=== PATIENT | female | born 1985 | race Two or more races ===

== ENCOUNTER 2018-11-25 22:30 | Observation (INO) | payer MEDICAID ==
[~2018-11-25 22:30] MED LIST: [UNRECOGNIZED DRUG - OTHER]
[2018-11-26] MEDS ORDERED: PREN-145 OR (12:25)
== END 2018-11-25 23:40 | disposition home or self-care (01) | DRG 566 ==
LOC: LDRP 22:30
PROVIDERS: ADMIT Specialist; ATTEND Specialist
DX: O42.92 Full-term premature rupture of membranes, unspecified as to length of time between rupture and onset of labor (principal); Z3A.38 38 weeks gestation of pregnancy
CPT/HCPCS: 59025; 81002; G0378

== ENCOUNTER 2018-11-26 10:50 | Inpatient (IN) | payer MEDICAID ==
[2018-11-26] MEDS ORDERED: LACT. RINGERS/OXYTOCIN 20UNITS 1,000 ML IV SCH (11:37)
[2018-11-26] MEDS ORDERED: LACTATED RINGER'S 1,000 ML IV SCH (11:37)
[2018-11-26] MEDS ORDERED: NALBUPHINE HCL 10 MG/1ml INJECTION IV PRN (11:45)
[2018-11-26] MEDS ORDERED: LIDOCAINE 2%HCL (LOCAL ANESTH.) INJ 20ML MDV ID ONE (11:45)
[2018-11-26] MEDS ORDERED: PHISODERM TOP SOLN 240ML BTL TOP PRN (11:45)
[2018-11-26] MEDS ORDERED: WITCH HAZEL-GLYCERIN PAD TOP PRN (11:45)
[2018-11-26] MEDS ORDERED: DERMOPLAST 60ML BOTTLE TOP PRN (11:45)
[2018-11-26 12:23] LABS: Urine Bacteria NONE SEEN /hpf (None Seen); Urine Blood 1+ /uL (Negative); Urine Specific Gravity 1.014 (1.001-1.035); Urine WBC 5 /hpf (0 - 5)
[2018-11-26] MEDS ORDERED: PREN-145 OR (12:25)
[2018-11-26 12:35] LABS: INR < 0.93 (0.9-1.15); Partial Thromboplastin Time 30.7 sec (23.64-32.05)
[2018-11-26 12:52] LABS: Albumin 2.8 g/dL (3.4-5.0); Calcium 9.1 mg/dL (8.5-10.1); Potassium 3.8 mmol/L (3.5-5.1)
[2018-11-26 12:55] LABS: Bilirubin, Total 0.3 mg/dL (0.2-1.0); Total Protein 6.7 g/dL (6.4-8.2)
[2018-11-26 13:46] LABS: Basophils # (auto) 0 uL; Basophils % (auto) 0.5 % (0.0-2.0); Eosinophils # (auto) 0 uL; Eosinophils % (auto) 0.4 % (0.0-7.0); Hematocrit 39.2 % (36.0-46.0); Hemoglobin 13.3 g/dL (12.2-16.2); Lymphocytes # (auto) 2.1 uL; Lymphocytes % (auto) 23.4 % (10.0-50.0); Mean Corpuscular Hgb Conc. 33.9 g/dL (32.0-36.0); Mean Corpuscular Volume 97.4 fL (80.0-100.0); Monocytes # (auto) 0.6 uL; Monocytes % (auto) 6.4 % (0.0-12.0); Neutrophils # (auto) 6.3 uL; Neutrophils % (auto) 69.3 % (37.0-80.0); Nucleated Red Blood Cells % 0.1 %; Platelet Count (auto) 191 10^3/uL (140-450); Red Blood Cells 4.02 10^6/uL (4.0-5.20); Red Cell Distribution Width 13.4 % (11.8-14.3); White Blood Cell 9.1 10^3/uL (4.4-10.8)
[2018-11-26] MEDS ORDERED: IBUPROFEN 600 MG TAB PO PRN (16:00)
--- NOTE | 2018-11-26 18:15 | NUR ---
Ambulation: Patient OOB with standby assistance by RN. Patient ambulated to bathroom with steady gait. Patient able to void 600ML without difficulty. [facility]icare teaching provided with returned demonstration by patient. Clean gown provided and bed linen changed. Patient ambulated back to bed with steady gait and no distress noted.
[2018-11-26 18:55] VITALS: BP 119/76
[2018-11-26 22:54] VITALS: BP 108/62
[2018-11-27 03:01] VITALS: BP 113/60
--- NOTE | 2018-11-27 03:35 | NUR ---
IV removal IV DC'd with clean sterile technique, catheter fully intact. Pressure dressing applied to site. Patient tolerated well. Will continue to monitor.
[2018-11-27 07:30] VITALS: BP 115/76
[2018-11-27 11:15] VITALS: BP 120/60
--- NOTE | 2018-11-27 13:55 | NUR ---
Discharge: Discharge instructions given as ordered. Pt encouraged to follow up with FLIGHT/TRANSPORT NURSE as instructed. All questions and concerns addressed. Patient verbalized understanding. Medication reconciliation completed and copy given to patient.
[2018-11-27 15:20] VITALS: BP 125/73
--- NOTE | 2018-11-27 17:54 | NUR ---
Went over Post depression scal ewith patient and score of 10. Discussed importance on repeating questionnaire at first OB appointment. Patient verbalizes understanding.
== END 2018-11-27 19:00 | disposition home or self-care (01) | DRG 560 ==
LOC: LDRP 10:50 → OBSVTOIN 11:30 → LDRP 20:28
PROVIDERS: ADMIT Obstetrics & Gynecology; ATTEND Obstetrics & Gynecology
PROC: 10E0XZZ Delivery of Products of Conception, External Approach (ICD-10-PCS; principal; 2018-11-26)
PROC: 0KQM0ZZ Repair Perineum Muscle, Open Approach (ICD-10-PCS; 2018-11-26)
DX: O77.0 Labor and delivery complicated by meconium in amniotic fluid (principal); O71.4 Obstetric high vaginal laceration alone; O69.81X0 Labor and delivery complicated by cord around neck, without compression, not applicable or unspecified; Z37.0 Single live birth; Z3A.39 39 weeks gestation of pregnancy
CPT/HCPCS: 36415; 59025; 59409; 80053; 81001; 81002; 84112; 85025; 85610; 85730; 86592; 86850; 86900; 86901; 96365; 96366; 96372; 96375; G0378; J2590